=== PATIENT | male | born 1940 | race Caucasian/White ===

== ENCOUNTER 2016-10-03 19:38 | Emergency (ER) | payer MEDICAID, MEDICARE, OTHER ==
[~2016-10-03] VITALS: Ht 167.6 cm; Wt 90.7 kg
[2016-10-03] MEDS ORDERED: fentaNYL INJECTION 100 MCG/2 ML AMP IVP ONE ×2 (19:45→20:15)
--- NOTE | 2016-10-03 19:49 | ED GU-Male ---
General Stated Complaint: CONFUSION Source: patient Exam Limitations: no limitations History of Present Illness Time seen by provider: 19:47 Initial Comments To ER per [facility]. His next door neighbor called after he knocked on her back door naked and she noticed blood on his coat which he was wearing as pants and noticed him to be confused. EMS did not notice any bleeding. Patient was moaning and writhing in bed on his way here. Reportedly, neighbor saw him 2-3 days ago and he wasn't like this. According to the neighbor, the patient does have a daughter but he is estranged from her. Daughter has not visited in 6 months after "he kicked her off of his property". No other family that the neighbor is aware of. Timing/Duration: just prior to arrival Severity/Quality: moderate Location: suprapubic Radiation: none Prior Genitourinary Problems: none Associated Symptoms: denies symptoms Allergies and Home Medications Allergies Coded Allergies: No Known Drug Allergies (Unverified , 10/03/16) Constitutional: see HPI Other Patient is far too confused to contribute to the history of present illness. Physical Exam Vital Signs Vital Sign - Last 12Hours 10/03/16 19:54 Temp 94.4 Pulse 82 Resp 12 B/P 174/78 Pulse Ox 95 O2 Delivery Room Air Capillary Refill : General Appearance: WD/WN moderate distress other (moaning) HEENT: PERRL/EOMI normal ENT inspection Neck: non-tender full range of motion Cardiovascular: regular rate, rhythm no murmur Respiratory: no accessory muscle use decreased breath sounds Gastrointestinal: normal bowel sounds soft tenderness other (reducible umbilical hernia) Extremities: normal range of motion non-tender other Neurologic/Psychiatric: disoriented x 3 other (alert, moans "0h, 0h" but will not otherwise answer questions.) Skin: normal color warm/dry Progress/Results/Core Measures Results/Orders Lab Results Laboratory Tests Test 10/03/16 19:40 10/03/16 19:48 10/03/16 19:54 10/03/16 20:33 Range/Units Alanine Aminotransferase (ALT/SGPT) 16 0-55 U/L Albumin 4.2 3.2-4.5 G/DL Alkaline Phosphatase 57 40-136 U/L Anion Gap 27 H 5-14 MMOL/L Aspartate Amino Transf (AST/SGOT) 11 5-34 U/L BUN/Creatinine Ratio 7 Basophils # (Auto) 0.0 0.0-0.1 10^3/uL Basophils (%) (Auto) 0 0-10 % Blood Urea Nitrogen 148 *H 7-18 MG/DL Calcium Level 9.0 8.5-10.1 MG/DL Carbon Dioxide Level 9 *L 21-32 MMOL/L Chloride Level 105 98-107 MMOL/L Creatinine 20.00 H 0.60-1.30 MG/DL Eosinophils # (Auto) 0.0 0.0-0.3 10^3/uL Eosinophils (%) (Auto) 0 0-10 % Estimat Glomerular Filtration Rate 2 Glucose Level 128 H 70-105 MG/DL Hematocrit 38 L 40-54 % Hemoglobin 13.3 13.3-17.7 G/DL INR Comment 1.4 0.8-1.4 Lymphocytes # (Auto) 1.1 1.0-4.0 X 10^3 Lymphocytes (%) (Auto) 9 L 12-44 % Mean Corpuscular Hemoglobin 29 25-34 PG Mean Corpuscular Hemoglobin Concent 35 32-36 G/DL Mean Corpuscular Volume 81 80-99 FL Mean Platelet Volume 10.1 7.4-10.4 FL Monocytes # (Auto) 0.8 0.0-1.0 X 10^3 Monocytes (%) (Auto) 6 0-12 % Neutrophils # (Auto) 10.8 H 1.8-7.8 X 10^3 Neutrophils (%) (Auto) 85 H 42-75 % Platelet Count 280 130-400 10^3/uL Potassium Level 6.4 H 3.6-5.0 MMOL/L Prothrombin Time 16.4 H 12.2-14.7 SEC Red Blood Count 4.67 4.35-5.85 10^6/uL Red Cell Distribution Width 13.5 10.0-14.5 % Sodium Level 141 135-145 MMOL/L Total Bilirubin 0.6 0.1-1.0 MG/DL Total Creatine Kinase 149 30-200 U/L Total Protein 7.1 6.4-8.2 G/DL White Blood Count 12.8 H 4.3-11.0 10^3/uL Urine Bacteria NEGATIVE /HPF Urine Bilirubin NEGATIVE NEGATIVE Urine Casts NONE /LPF Urine Clarity SLIGHTLY CLOUDY Urine Color YELLOW Urine Crystals NONE /LPF Urine Culture Indicated NO Urine Glucose (UA) NEGATIVE NEGATIVE Urine Ketones 1+ H NEGATIVE Urine Leukocyte Esterase NEGATIVE NEGATIVE Urine Mucus SMALL H /LPF Urine Nitrite NEGATIVE NEGATIVE Urine Protein NEGATIVE NEGATIVE Urine RBC 25-50 H /HPF Urine RBC (Auto) 4+ H NEGATIVE Urine Specific [place] 1.010 L 1.016-1.022 Urine Urobilinogen NORMAL NORMAL MG/DL Urine WBC 0-2 /HPF Urine pH 5 5-9 Glucometer 146 H 70-110 MG/DL Lactic Acid Level 0.9 0.5-2.0 MMOL/L Test 10/03/16 20:36 10/03/16 21:20 Range/Units [place] Test YES-POS Arterial Blood Base Excess -13.3 L -2.5-2.5 MMOL/L Arterial Blood HCO3 12 *L 23-27 MMOL/L Arterial Blood Oxygen Saturation 95 94-100 % Arterial Blood Partial Pressure CO2 27 L 35-45 MMHG Arterial Blood Partial Pressure O2 76 L 79-93 MMHG Arterial Blood Total CO2 13.2 L 21.0-31.0 MMOL/L Arterial Blood pH 7.27 *L 7.37-7.43 Blood Gas Inspired Oxygen RA Blood Gas Patient Temperature 97.4 Blood Gas Puncture Site LT RAD Blood Gas Ventilator Setting NO Anion Gap 24 H 5-14 MMOL/L BUN/Creatinine Ratio 9 Blood Urea Nitrogen 133 *H 7-18 MG/DL Calcium Level 9.0 8.5-10.1 MG/DL Carbon Dioxide Level 13 L 21-32 MMOL/L Chloride Level 106 98-107 MMOL/L Creatinine 15.64 H 0.60-1.30 MG/DL Estimat Glomerular Filtration Rate 3 Glucose Level 188 H 70-105 MG/DL Potassium Level 5.3 H 3.6-5.0 MMOL/L Sodium Level 143 135-145 MMOL/L My Orders Orders-SILKE OSORIO APRN Cbc With Automated Diff (10/03/16 19:39) Comprehensive Metabolic Panel (10/03/16 19:39) Ua Culture If Indicated (10/03/16 19:39) Saline Lock/Iv-Start (10/03/16 19:39) Chest 1 View, Ap/Pa Only (10/03/16 19:39) Ct Head/Cervical Spine Wo (10/03/16 19:39) Protime With Inr (10/03/16 19:39) Blood Culture (10/03/16 19:40) Lactic Acid Analyzer (10/03/16 19:40) Creatine Kinase (10/03/16 19:40) Fentanyl Injection (Sublimaze Injection (10/03/16 19:45) Accucheck Stat ONCE (10/03/16 19:53) Ondansetron Injection (Zofran Injectio (10/03/16 20:15) Ondansetron Injection (Zofran Injectio (10/03/16 20:15) Ondansetron Injection (Zofran Injectio (10/03/16 20:06) Fentanyl Injection (Sublimaze Injection (10/03/16 20:15) Ct Abdomen/Pelvis Wo (10/03/16 20:13) Ekg Tracing (10/03/16 20:16) Insulin (Regular) Human (Humulin R (Per (10/03/16 20:30) D50w (Emergency) Syringe (Dextrose 50% 5 (10/03/16 20:30) Furosemide Injection (Lasix Injection) (10/03/16 20:30) Sodium Bicarbonate 8.4% Syr (Sodium Bica (10/03/16 20:30) Saline Lock/Iv-Start (10/03/16 20:26) Arterial Blood Gas (10/03/16 20:37) Gomez Cath Insertion (10/03/16 21:08) Basic Metabolic Panel (10/03/16 21:20) Medications Given in ED Current Medications Medications Dose Ordered Sig/Naomi Route Start Time Stop Time Status Last Admin Dose Admin Dextrose 50 ml ONCE ONCE IV 10/03/16 20:30 10/03/16 20:31 DC 10/03/16 21:05 50 ML Fentanyl Citrate 50 mcg ONCE ONCE IVP 10/03/16 19:45 10/03/16 19:46 DC 10/03/16 19:48 50 MCG Furosemide 40 mg ONCE ONCE IVP 10/03/16 20:30 10/03/16 20:31 DC 10/03/16 21:05 40 MG Insulin Human Regular 10 unit ONCE ONCE IV 10/03/16 20:30 10/03/16 20:31 DC 10/03/16 21:05 10 UNIT Ondansetron HCl 4 mg ONCE ONCE IVP 10/03/16 20:15 10/03/16 20:16 DC 10/03/16 20:10 4 MG Ondansetron HCl 4 mg ONCE ONCE IVP 10/03/16 20:15 10/03/16 20:16 DC 10/03/16 21:05 4 MG Sodium Bicarbonate 50 meq ONCE ONCE IV 10/03/16 20:30 10/03/16 20:31 DC 10/03/16 21:05 50 MEQ Vital Signs/I&O Vital Sign - Last 12Hours 10/03/16 19:54 Temp 94.4 Pulse 82 Resp 12 B/P 174/78 Pulse Ox 95 O2 Delivery Room Air ECG Initial ECG Rhythm: Normal Sinus Initial ECG Impression: Normal Comment No ectopy, normal rate Diagnostic Imaging Diagonstic Imaging: Xray, CT Comments [facility] [id number] PT STATUS: REG ER : 1940 PHYSICIAN: SILKE OSORIO APRN ADMIT DATE: 10/03/16/ER Draft Date of Exam:10/03/16 CHEST 1 VIEW, AP/PA ONLY INDICATION: Altered mental status. COMPARISON: None available. TECHNIQUE: Single frontal radiograph of the chest dated October 03, 2016. FINDINGS: The cardiac silhouette is within normal limits. No significant pulmonary vascular congestion. Small left basilar pleural-parenchymal opacity is present. Minimal diffuse prominence of the pulmonary interstitium. No focal pulmonary opacity within the right lung. No significant right pleural effusion. No pneumothorax. No acute osseous abnormality. IMPRESSION: Small left basilar pleural-parenchymal opacity, felt to relate to a combination of pleural fluid with adjacent minimal infiltrate and/or atelectasis. Mild diffuse prominence of the pulmonary interstitium. Findings could relate to minimal background interstitial lung disease versus minimal interstitial edema. There is, however, no significant pulmonary vascular congestion. Dictated on workstation # [id number] Dict: 10/03/162022 Trans: 10/03/162026 [id number] Interpreted by: FLACO HASTINGS MD Electronically signed by: NAME: [facility] [id number] PT STATUS: REG ER : 1940 PHYSICIAN: SILKE OSORIO APRN ADMIT DATE: 10/03/16/ER Draft Date of Exam:10/03/16 CT ABDOMEN/PELVIS WO PROCEDURE: CT abdomen and pelvis without contrast. TECHNIQUE: Multiple contiguous axial images were obtained through the abdomen and pelvis without the use of intravenous contrast. INDICATION: Altered mental status COMPARISON: None available FINDINGS: Small left basilar pleural effusion. Otherwise, the visualized lung bases are clear. 6 mm hypodensity within the dome of the right hepatic lobe, which is too small to completely characterize. Additional 5 mm hypodensity within the lateral aspect of the right hepatic lobe. Otherwise, the unenhanced liver is unremarkable. Calcified splenic granuloma. Otherwise, the spleen is unremarkable. The adrenal glands are unremarkable. The pancreas is unremarkable. The gallbladder is grossly unremarkable. Gomez catheter is noted within a decompressed urinary bladder. The prostate gland is significantly enlarged. Moderate bilateral hydroureteronephrosis. Mild bilateral perinephric inflammatory stranding. Layering densities are noted within the right renal pelvis measuring up to 1.1 cm. Given density, this is not consistent with a densely calcified calculus. Additional slight hyperdensity is seen within the inferior pole of the right kidney measuring 0.6 cm. Moderate vascular calcifications within the abdominal aorta and its branch vessels. Small fat-containing umbilical hernia. Small fat-containing left inguinal hernia. Mild colonic diverticulosis without definite CT evidence of diverticulitis. Small to moderate amount of low-density fluid identified within the abdomen and pelvis, including about the liver and spleen. No free air. No adenopathy. Scattered osseous degenerative changes without acute osseous abnormality. IMPRESSION: Moderate bilateral hydroureteronephrosis. Although this could simply relate to chronic urinary bladder outlet obstruction given the severe enlargement of the prostate gland. On this examination, the urinary bladder is decompressed secondary to a Gomez catheter. Therefore, additional etiologies of obstruction should be considered but not definitely identified. Layering densities within the right renal pelvis and right renal collecting system. These may relate to mildly calcified renal calculi. Blood clots or debris would be an additional consideration. Recommend renal ultrasound for further evaluation. Additionally, a CT of the abdomen and pelvis with and without contrast including delayed imaging would help to further evaluate the bilateral ureters for intraluminal filling defect. Correlation with urinary analysis is also recommended given perinephric inflammatory stranding to ensure that there is no underlying pyelonephritis. Small to moderate amount of free fluid throughout the abdomen and pelvis. Mild colonic diverticulosis without definite CT evidence of diverticulitis. Small left pleural effusion. Tiny hypodensities within the liver which are incompletely evaluated without the use of intravenous contrast. Small fat-containing umbilical hernia and left inguinal hernia. Additional findings as above. Dictated on workstation # [id number] Dict: 10/03/162041 Trans: 10/03/162056 [facility] [id number] Interpreted by: FLACO HASTINGS MD Electronically signed by: NAME: CARLIE SUBRAMANIAN [facility] REC#: [id number] PT STATUS: REG ER : 1940 PHYSICIAN: SILKE OSORIO APRN ADMIT DATE: 10/03/16/ER Draft Date of Exam:10/03/16 CT HEAD/CERVICAL SPINE WO PROCEDURE: CT head and CT cervical spine without contrast. TECHNIQUE: Multiple contiguous axial images were obtained through the brain and cervical spine without the use of intravenous contrast. Sagittal and coronal reformations through the cervical spine were then performed. INDICATION: Altered mental status. COMPARISON: None available. FINDINGS: Mild atrophy. No intracranial hemorrhage. Periventricular and subcortical white matter hypodensities are present, most consistent with mild chronic small vessel white matter ischemic disease. A 5 mm hypodensity within the left basal ganglia is present. No definite CT evidence of a large territorial infarction. The orbits are unremarkable. The paranasal sinuses are clear. The calvarium and extra calvarial soft tissues are unremarkable. Alignment of the cervical spine is well-maintained. Alignment of the atlantooccipital joint is well-maintained. Besides endplate degenerative changes, vertebral body heights are well-maintained. Moderate to severe disc space height loss at C5/C6 and C6/C7. Otherwise, disc space heights are well-maintained. No acute fracture or dislocation. No destructive osseous process. Scattered facet joint degenerative changes and uncovertebral joint hypertrophy are present. No high-grade osseous central canal stenosis. Scattered vascular calcifications. Otherwise, the paraspinal soft tissues are unremarkable. IMPRESSION: A 5 mm hypodensity within the left basal ganglia. This is felt to relate to a tiny age-indeterminate lacunar infarction versus less likely dilated perivascular space. Mild atrophy with associated mild chronic small vessel white matter ischemic disease. No acute osseous abnormality within the cervical spine with mild to moderate multilevel degenerative changes. If there is clinical concern for underlying recent infarction, further evaluation with MRI of the brain could be obtained. Dictated on workstation # [id number] Dict: 10/03/162048 Trans: 10/03/162099 [facility] [id number] Interpreted by: FLACO HASTINGS MD Electronically signed by: Critical Care Note Critical Care Start Time: 21:00 Stop Time: 22:00 Total Time (minutes) 60 Departure Communication Progress Notes 1950-a Gomez catheter was inserted upon arrival to ER which showed blood clots in it and a total of 1 L was drained and he quit moaning. 2018-I called [facility]'s office to ask about family members. They state that the neighbor who called in the report stated that he does have a daughter but they don't know where she lives or how to contact her. 2132-Neighbor present. States his daughter hasnt been around n 6+ months and they do not talk. She does not know where the daughter lives or how to contact her. No spouse or other children. As of this time, he's had 2900ml of Urine output per gomez cather. 2138-Dr. Dumont has excepted the patient in transfer to ICU. Patient's chest x- ray, CT abdomen and pelvis without and CT head/cervical spine without have been sent via cloud to [place] [id number] paged for transport to [place] ICU room 264. HR 72 sinus, O2 95% on room air, RR 18, BP 145/74. No longer moaning/writhing. Impression Impression: Primary Impression: Acute renal failure Qualified Code: N17.9 - Acute kidney failure, unspecified Additional Impressions: Uremic encephalopathy Metabolic acidosis Extrarenal azotemia Disposition: ADMITTED INPATIENT Condition: Critical Decision to Admit Reason: Admit from ER (General) Decision to Admit/Date: Oct 03, 2016 Time/Decision to Admit Time: 20:20 Departure-Patient Inst. Referrals: UNKNOWN (PCP/Family) Primary Care Physician SILKE OSORIO APRN Oct 03, 2016 19:49
[2016-10-03 19:50] LABS: BASOPHILS % (AUTO) 0 % (0-10); EOSINOPHILS % (AUTO) 0 % (0-10); LYMPHOCYTES # (AUTO) 1.1 X 10^3 (1.0-4.0); LYMPHOCYTES % (AUTO) 9 % (12-44); MEAN CORPUSCULAR HEMOGLOBIN 29 PG (25-34); MEAN CORPUSCULAR HGB CONC 35 G/DL (32-36); MEAN CORPUSCULAR VOLUME 81 FL (80-99); MEAN PLATELET VOLUME 10.1 FL (7.4-10.4); MONOCYTES # (AUTO) 0.8 X 10^3 (0.0-1.0); MONOCYTES % (AUTO) 6 % (0-12); NEUTROPHILS # (AUTO) 10.8 X 10^3 (1.8-7.8); NEUTROPHILS % (AUTO) 85 % (42-75); PLATELET COUNT 280 10^3/uL (130-400); RED BLOOD COUNT 4.67 10^6/uL (4.35-5.85); RED CELL DISTRIBUTION WIDTH 13.5 % (10.0-14.5); WHITE BLOOD COUNT 12.8 10^3/uL (4.3-11.0)
[2016-10-03 19:55] LABS: BILIRUBIN,URINE NEGATIVE (NEGATIVE); KETONES,URINE 1+ (NEGATIVE); LEUKOCYTE ESTERASE ,URINE NEGATIVE (NEGATIVE); NITRITE,URINE NEGATIVE (NEGATIVE); PH,URINE 5 (5-9); PROTEIN,URINE NEGATIVE (NEGATIVE); UROBILINOGEN,URINE NORMAL (NORMAL)
[2016-10-03 20:04] LABS: INR 1.4 (0.8-1.4); PROTHROMBIN TIME PATIENT 16.4 SEC (12.2-14.7)
[2016-10-03] MEDS ORDERED: ONDANSETRON 4 MG/2 ML (SDV) Z0FRAN ONE (20:06)
[2016-10-03 20:10] LABS: WBC,URINE 0-2 /HPF
[2016-10-03] MEDS ORDERED: ONDANSETRON 4 MG/2 ML (SDV) Z0FRAN IVP ONE ×2 (20:15)
[2016-10-03 20:16] LABS: ALBUMIN 4.2 G/DL (3.2-4.5); BILIRUBIN,TOTAL 0.6 MG/DL (0.1-1.0); POTASSIUM 6.4 MMOL/L (3.6-5.0); TOTAL PROTEIN 7.1 G/DL (6.4-8.2)
--- NOTE | 2016-10-03 20:27 | Diagnostic Imaging Report ---
INDICATION: Altered mental status. COMPARISON: None available. TECHNIQUE: Single frontal radiograph of the chest dated October 03, 2016. FINDINGS: The cardiac silhouette is within normal limits. No significant pulmonary vascular congestion. Small left basilar pleural-parenchymal opacity is present. Minimal diffuse prominence of the pulmonary interstitium. No focal pulmonary opacity within the right lung. No significant right pleural effusion. No pneumothorax. No acute osseous abnormality. IMPRESSION: Small left basilar pleural-parenchymal opacity, felt to relate to a combination of pleural fluid with adjacent minimal infiltrate and/or atelectasis. Mild diffuse prominence of the pulmonary interstitium. Findings could relate to minimal background interstitial lung disease versus minimal interstitial edema. There is, however, no significant pulmonary vascular congestion. Dictated by: Dictated on workstation # [id number]
[2016-10-03] MEDS ORDERED: DEXTROSE 50% 50 ML (IMS) SYR IV ONE (20:30)
[2016-10-03] MEDS ORDERED: inSUlin (REGULAR) HUMAN 1 UNIT/0.01 ML (CHARGE PER UNIT) IV ONE (20:30)
[2016-10-03] MEDS ORDERED: FUROSEMIDE 40 MG/4 ML INJ (LASIX) IVP ONE (20:30)
[2016-10-03] MEDS ORDERED: SODIUM BICARB 8.4% 50 MEQ/50 ML (ABBOTT) SYR IV ONE (20:30)
[2016-10-03 20:43] LABS: ABG BASE EXCESS -13.3 MMOL/L (-2.5-2.5); ABG OXYGEN SATURATION 95 % (94-100); ABG PCO2 27 MMHG (35-45); ABG PO2 76 MMHG (79-93); ABG TCO2 13.2 MMOL/L (21.0-31.0)
[2016-10-03 20:44] LABS: ABG PH 7.27 (7.37-7.43)
[2016-10-03 20:45] LABS: ABG HCO3 12 MMOL/L (23-27); ALLENS TEST YES-POS; PATIENT TEMP 97.4
--- NOTE | 2016-10-03 20:58 | Diagnostic Imaging Report ---
PROCEDURE: CT abdomen and pelvis without contrast. TECHNIQUE: Multiple contiguous axial images were obtained through the abdomen and pelvis without the use of intravenous contrast. INDICATION: Altered mental status COMPARISON: None available FINDINGS: Small left basilar pleural effusion. Otherwise, the visualized lung bases are clear. 6 mm hypodensity within the dome of the right hepatic lobe, which is too small to completely characterize. Additional 5 mm hypodensity within the lateral aspect of the right hepatic lobe. Otherwise, the unenhanced liver is unremarkable. Calcified splenic granuloma. Otherwise, the spleen is unremarkable. The adrenal glands are unremarkable. The pancreas is unremarkable. The gallbladder is grossly unremarkable. Cates catheter is noted within a decompressed urinary bladder. The prostate gland is significantly enlarged. Moderate bilateral hydroureteronephrosis. Mild bilateral perinephric inflammatory stranding. Layering densities are noted within the right renal pelvis measuring up to 1.1 cm. Given density, this is not consistent with a densely calcified calculus. Additional slight hyperdensity is seen within the inferior pole of the right kidney measuring 0.6 cm. Moderate vascular calcifications within the abdominal aorta and its branch vessels. Small fat-containing umbilical hernia. Small fat-containing left inguinal hernia. Mild colonic diverticulosis without definite CT evidence of diverticulitis. Small to moderate amount of low-density fluid identified within the abdomen and pelvis, including about the liver and spleen. No free air. No adenopathy. Scattered osseous degenerative changes without acute osseous abnormality. IMPRESSION: Moderate bilateral hydroureteronephrosis. Although this could simply relate to chronic urinary bladder outlet obstruction given the severe enlargement of the prostate gland. On this examination, the urinary bladder is decompressed secondary to a Cates catheter. Therefore, additional etiologies of obstruction should be considered but not definitely identified. Layering densities within the right renal pelvis and right renal collecting system. These may relate to mildly calcified renal calculi. Blood clots, neoplasm, or debris would be an additional consideration. Recommend renal ultrasound for further evaluation. Additionally, a CT of the abdomen and pelvis with and without contrast including delayed imaging would help to further evaluate the bilateral ureters for intraluminal filling defect. Correlation with urinary analysis is also recommended given perinephric inflammatory stranding to ensure that there is no underlying pyelonephritis. Small to moderate amount of free fluid throughout the abdomen and pelvis. Mild colonic diverticulosis without definite CT evidence of diverticulitis. Small left pleural effusion. Tiny hypodensities within the liver which are incompletely evaluated without the use of intravenous contrast. Small fat-containing umbilical hernia and left inguinal hernia. Additional findings as above. Dictated by: Dictated on workstation # [id number]
--- NOTE | 2016-10-03 21:00 | Diagnostic Imaging Report ---
PROCEDURE: CT head and CT cervical spine without contrast. TECHNIQUE: Multiple contiguous axial images were obtained through the brain and cervical spine without the use of intravenous contrast. Sagittal and coronal reformations through the cervical spine were then performed. INDICATION: Altered mental status. COMPARISON: None available. FINDINGS: Mild atrophy. No intracranial hemorrhage. Periventricular and subcortical white matter hypodensities are present, most consistent with mild chronic small vessel white matter ischemic disease. A 5 mm hypodensity within the left basal ganglia is present. No definite CT evidence of a large territorial infarction. The orbits are unremarkable. The paranasal sinuses are clear. The calvarium and extra calvarial soft tissues are unremarkable. Alignment of the cervical spine is well-maintained. Alignment of the atlantooccipital joint is well-maintained. Besides endplate degenerative changes, vertebral body heights are well-maintained. Moderate to severe disc space height loss at C5/C6 and C6/C7. Otherwise, disc space heights are well-maintained. No acute fracture or dislocation. No destructive osseous process. Scattered facet joint degenerative changes and uncovertebral joint hypertrophy are present. No high-grade osseous central canal stenosis. Scattered vascular calcifications. Otherwise, the paraspinal soft tissues are unremarkable. IMPRESSION: A 5 mm hypodensity within the left basal ganglia. This is felt to relate to a tiny age-indeterminate lacunar infarction versus less likely dilated perivascular space. Mild atrophy with associated mild chronic small vessel white matter ischemic disease. No acute osseous abnormality within the cervical spine with mild to moderate multilevel degenerative changes. If there is clinical concern for underlying recent infarction, further evaluation with MRI of the brain could be obtained. Dictated by: Dictated on workstation # [id number]
[2016-10-03 21:58] LABS: CREATININE SERUM 15.64 MG/DL (0.60-1.30); POTASSIUM 5.3 MMOL/L (3.6-5.0)
[2016-10-03 22:37] VITALS: BP 133/81
[2016-10-03] MEDS ORDERED: fentaNYL INJECTION 100 MCG/2 ML AMP ONE (22:42)
[2016-11-13] MEDS ORDERED: DONE5TAB8 PO (13:36)
== END 2016-10-03 22:37 | disposition short-term general hospital (02) ==
LOC: EDBD → ER 19:39
DX: N17.9 Acute kidney failure, unspecified (principal); G93.49 Other encephalopathy; E87.2 Acidosis; R79.89 Other specified abnormal findings of blood chemistry; K42.9 Umbilical hernia without obstruction or gangrene; K40.90 Unilateral inguinal hernia, without obstruction or gangrene, not specified as recurrent; K57.30 Diverticulosis of large intestine without perforation or abscess without bleeding; J90 Pleural effusion, not elsewhere classified
CPT/HCPCS: 36415; 51702; 70450; 71010; 72125; 74176; 80048; 80053; 81000; 82550; 82805; 82962; 83605; 85025; 85610; 87040; 93005; 96374; 96375; 96376

== ENCOUNTER 2016-11-09 16:23 | Observation (INO) | payer MEDICARE, OTHER ==
[~2016-11-09] VITALS: Ht 167.6 cm; Wt 71.2 kg
--- OUTSIDE RECORDS SUMMARY | 2016-11-09 16:28 | XMS REPORT | Continuity of Care Document ---
Author Author [facility] Organization [facility] Address Unknown Phone Unavailable Care Team Providers Care [employer] S[employer] Name Role Phone UNKNOWN PCP Unavailable Insurance Providers Payer Name Policy Number Subscriber Name Relationship Self Pay Yayo Subramanian 18 Self / Same As Patient Chief Complaint and Reason for Visit Chief Complaint Altered Mental Status Reason for Visit Uremic encephalopathy Acute renal failure [id number] Metabolic acidosis Problems Active Problems Medical Problem Onset Date Status Acute renal failure Unknown Acute Extrarenal azotemia Unknown Acute Metabolic acidosis Unknown Acute Uremic encephalopathy Unknown Acute Medications No medication information available. Social History Social History Problem Response Recorded Date/Time Recent Foreign Travel No 10/03/2016 7:54pm Recent Infectious Disease Exposure No 10/03/2016 7:54pm Hospitalization with Isolation Denies 10/03/2016 7:54pm Recent Hopitalizations No 10/03/2016 7:54pm Hospitalization with Isolation Denies 10/03/2016 7:54pm Hospital Discharge Instructions No hospital discharge instructions. Plan of Care Discharge Date 10/03/16 10:40pm Disposition 09 ADMITTED INPATIENT Condition at Discharge Critical Prescriptions See Medication Section Referrals UNKNOWN - Primary Care Physician Functional Status Query Response Date Recorded Patient Orientation Mumbles October 03, 2016 7:54pm Comprehension Ability Understands Concepts October 03, 2016 7:54pm Allergies, Adverse Reactions, Alerts No known allergies. Immunizations No immunization records. Vital Signs Acute Vital Signs Vital Response Date/Time Temperature (Fahrenheit) 94.4 degrees F (97.6 - 99.5) 10/03/2016 7:54pm Temperature (Calculated Celsius) 34.42821 degrees C (36.4 - 37.5) 10/03/2016 7:54pm Temperature Source Tympanic 10/03/2016 7:54pm Pulse Rate (adult) 74 bpm (60 - 90) 10/03/2016 10:37pm Respiratory Rate 14 bpm (12 - 24) 10/03/2016 10:37pm O2 Sat by Pulse Oximetry 100 % (88 - 100) 10/03/2016 10:37pm Blood Pressure 133/81 mm Hg 10/03/2016 10:37pm Blood Pressure Mean 110 mm Hg 10/03/2016 7:54pm Pain Numeric Pain Scale 7 10/03/2016 7:54pm Height (Feet) 5 feet 10/03/2016 7:54pm Height (Inches) 6 inches 10/03/2016 7:54pm Height (Calculated Centimeters) 167.284003 cm 10/03/2016 7:54pm Weight (Pounds) 200 pounds 10/03/2016 7:54pm Weight (Calculated Kilograms) 90.404403 kilograms 10/03/2016 7:54pm Capillary Refill Capillary Refill Less Than 3 Seconds 10/03/2016 7:54pm Height 5 ft 6 in Weight 200 lb Body Mass Index 32.3 kg/m^2 Results Laboratory Results Test Name Result Units Flags Reference Collection Date/Time Result Date/ Time Comments White Blood Count 12.8 10^3/uL H 4.3-11.0 10/03/2016 7:40pm 10/03/2016 7: 59pm Red Blood Count 4.67 10^6/uL 4.35-5.85 10/03/2016 7:40pm 10/03/2016 7: 59pm Hemoglobin 13.3 G/DL 13.3-17.7 10/03/2016 7:40pm 10/03/2016 7:59pm Hematocrit 38 % L 40-54 10/03/2016 7:40pm 10/03/2016 7:59pm Mean Corpuscular Volume 81 FL 80-99 10/03/2016 7:40pm 10/03/2016 7: 59pm Mean Corpuscular Hemoglobin 29 PG 25-34 10/03/2016 7:40pm 10/03/2016 7: 59pm Mean Corpuscular Hemoglobin Concent 35 G/DL 32-36 10/03/2016 7:40pm 7:59pm Red Cell Distribution Width 13.5 % 10.0-14.5 10/03/2016 7:40pm 2016 7:59pm Platelet Count 280 10^3/uL 130-400 10/03/2016 7:40pm 10/03/2016 7:59pm Mean Platelet Volume 10.1 FL 7.4-10.4 10/03/2016 7:40pm 10/03/2016 7: 59pm Neutrophils (%) (Auto) 85 % H 42-75 10/03/2016 7:40pm 10/03/2016 7:59pm Lymphocytes (%) (Auto) 9 % L 12-44 10/03/2016 7:40pm 10/03/2016 7:59pm Monocytes (%) (Auto) 6 % 0-12 10/03/2016 7:40pm 10/03/2016 7:59pm Eosinophils (%) (Auto) 0 % 0-10 10/03/2016 7:40pm 10/03/2016 7:59pm Basophils (%) (Auto) 0 % 0-10 10/03/2016 7:40pm 10/03/2016 7:59pm Neutrophils # (Auto) 10.8 X 10^3 H 1.8-7.8 10/03/2016 7:40pm 10/03/2016 7 :59pm Lymphocytes # (Auto) 1.1 X 10^3 1.0-4.0 10/03/2016 7:40pm 10/03/2016 7: 59pm Monocytes # (Auto) 0.8 X 10^3 0.0-1.0 10/03/2016 7:40pm 10/03/2016 7: 59pm Eosinophils # (Auto) 0.0 10^3/uL 0.0-0.3 10/03/2016 7:40pm 10/03/2016 7 :59pm Basophils # (Auto) 0.0 10^3/uL 0.0-0.1 10/03/2016 7:40pm 10/03/2016 7: 59pm Prothrombin Time 16.4 SEC H 12.2-14.7 10/03/2016 7:40pm 10/03/2016 8: 07pm INR Comment 1.4 0.8-1.4 10/03/2016 7:40pm 10/03/2016 8:07pm INTERPRETIVE DATA SUGGESTED THERAPEUTIC RANGE FOR INR'S: VENOUS THROMBOSIS, PULMONARY EMBOLISM, OR PREVENTION OF SYSTEMIC EMBOLISM (EG. IN ATRIAL FIBRILLATION): 2.0 - 3.0 MECHANICAL PROSTHETIC HEART VALVES: 2.5 - 3.5* *NOTE: INR'S UP TO 4.5 MAY BE NECESSARY IN SELECTED GROUPS OF HIGH RISK PATIENTS. [employer] CONSENSUS CONFERENCE ON ANTITHROMBOTIC THERAPY (2000). Urine Color YELLOW 10/03/2016 7:48pm 10/03/2016 8:11pm Urine Clarity SLIGHTLY CLOUDY 10/03/2016 7:48pm 10/03/2016 8:11pm Urine pH 5 5-9 10/03/2016 7:48pm 10/03/2016 8:11pm Urine Specific [place] 1.010 * 1.016-1.022 10/03/2016 7:48pm 2016 8:11pm Urine Protein NEGATIVE NEGATIVE 10/03/2016 7:48pm 10/03/2016 8:11pm Urine Glucose (UA) NEGATIVE NEGATIVE 10/03/2016 7:48pm 10/03/2016 8: 11pm Urine RBC (Auto) 4+ * NEGATIVE 10/03/2016 7:48pm 10/03/2016 8:11pm Urine Ketones 1+ * NEGATIVE 10/03/2016 7:48pm 10/03/2016 8:11pm Urine Nitrite NEGATIVE NEGATIVE 10/03/2016 7:48pm 10/03/2016 8:11pm Urine Bilirubin NEGATIVE NEGATIVE 10/03/2016 7:48pm 10/03/2016 8: 11pm Urine Urobilinogen NORMAL MG/DL NORMAL 10/03/2016 7:48pm 10/03/2016 8: 11pm Urine Leukocyte Esterase NEGATIVE NEGATIVE 10/03/2016 7:48pm 2016 8:11pm Urine RBC 25-50 /HPF * 10/03/2016 7:48pm 10/03/2016 8:11pm Urine WBC 0-2 /HPF 10/03/2016 7:48pm 10/03/2016 8:11pm Urine Bacteria NEGATIVE /HPF 10/03/2016 7:48pm 10/03/2016 8:11pm Urine Crystals NONE /LPF 10/03/2016 7:48pm 10/03/2016 8:11pm Urine Casts NONE /LPF 10/03/2016 7:48pm 10/03/2016 8:11pm Urine Mucus SMALL /LPF * 10/03/2016 7:48pm 10/03/2016 8:11pm Urine Culture Indicated NO 10/03/2016 7:48pm 10/03/2016 8:11pm Sodium Level 143 MMOL/L 135-145 10/03/2016 9:20pm 10/03/2016 10:01pm Potassium Level 5.3 MMOL/L H 3.6-5.0 10/03/2016 9:20pm 10/03/2016 10: 01pm Chloride Level 106 MMOL/L 98-107 10/03/2016 9:20pm 10/03/2016 10:01pm Carbon Dioxide Level 13 MMOL/L L 21-32 10/03/2016 9:20pm 10/03/2016 10: 01pm Anion Gap 24 MMOL/L H 5-14 10/03/2016 9:20pm 10/03/2016 10:01pm Blood Urea Nitrogen 133 MG/DL CH 7-18 10/03/2016 9:20pm 10/03/2016 10: 01pm RESULTS CALLED TO PB AT 2200. RESULTS READ BACK: YES. Creatinine 15.64 MG/DL H 0.60-1.30 10/03/2016 9:20pm 10/03/2016 10:01pm BUN/Creatinine Ratio 9 10/03/2016 9:20pm 10/03/2016 10:01pm Estimat Glomerular Filtration Rate 3 10/03/2016 9:20pm 10/03/2016 10:01pm GFR INTERPRETIVE DATA UNITS FOR ESTIMATED GFR (eGFR): mL/min/1.73 M2 REFERENCE RANGE FOR ESTIMATED GFR (eGFR) eGFR NORMAL eGFR >60 MODERATELY DECREASED eGFR 30-59 SEVERLY DECREASED eGFR 15-29 KIDNEY FAILURE <15 (OR DIALYSIS) Glucose Level 188 MG/DL H 70-105 10/03/2016 9:20pm 10/03/2016 10:01pm Glucometer 146 MG/DL H 70-110 10/03/2016 7:54pm 10/03/2016 8:01pm Calcium Level 9.0 MG/DL 8.5-10.1 10/03/2016 9:20pm 10/03/2016 10:01pm Total Bilirubin 0.6 MG/DL 0.1-1.0 10/03/2016 7:40pm 10/03/2016 8:18pm Alkaline Phosphatase 57 U/L 40-136 10/03/2016 7:40pm 10/03/2016 8:18pm Aspartate Amino Transf (AST/SGOT) 11 U/L 5-34 10/03/2016 7:40pm 2016 8:18pm Alanine Aminotransferase (ALT/SGPT) 16 U/L 0-55 10/03/2016 7:40pm 10/03 8:18pm Total Creatine Kinase 149 U/L 30-200 10/03/2016 7:40pm 10/03/2016 8: 18pm Total Protein 7.1 G/DL 6.4-8.2 10/03/2016 7:40pm 10/03/2016 8:18pm Albumin 4.2 G/DL 3.2-4.5 10/03/2016 7:40pm 10/03/2016 8:18pm Lactic Acid Level 0.9 MMOL/L 0.5-2.0 10/03/2016 8:33pm 10/03/2016 9: 19pm Lactic acid levels can appear lower than actual values in patients receiving NAC (N-Acetyl Cysteine). Arterial Blood pH 7.27 CL 7.37-7.43 10/03/2016 8:36pm 10/03/2016 8: 45pm RESULTS CALLED TO JOSUÉ AT 2043. RESULTS READ BACK: YES. Arterial Blood Partial Pressure CO2 27 MMHG L 35-45 10/03/2016 8:36pm 8:45pm Arterial Blood Partial Pressure O2 76 MMHG L 79-93 10/03/2016 8:36pm 8:45pm Arterial Blood HCO3 12 MMOL/L CL 23-27 10/03/2016 8:36pm 10/03/2016 8: 45pm RESULTS CALLED TO LUCERO AT 2044. RESULTS READ BACK: YES. Arterial Blood Total CO2 13.2 MMOL/L L 21.0-31.0 10/03/2016 8:36pm 2016 8:45pm Arterial Blood Base Excess -13.3 MMOL/L L -2.5-2.5 10/03/2016 8:36pm 8:45pm Arterial Blood Oxygen Saturation 95 % 94-100 10/03/2016 8:36pm 2016 8:45pm Blood Gas Puncture Site LT RAD 10/03/2016 8:36pm 10/03/2016 8:45pm Norman Test YES-POS 10/03/2016 8:36pm 10/03/2016 8:45pm Blood Gas Inspired Oxygen RA 10/03/2016 8:36pm 10/03/2016 8:45pm Blood Gas Ventilator Setting NO 10/03/2016 8:36pm 10/03/2016 8: 45pm Blood Gas Patient Temperature 97.4 10/03/2016 8:36pm 10/03/2016 8: 45pm Procedures Procedure Status Date Provider(s) Tracing only of electrocardiogram Active 10/03/16 SILKE OSORIO APRN Encounters Encounter Location Arrival/Admit Date Discharge/Depart Date Attending Provider Departed Emergency Room [facility] 10/03/16 7:39pm 10/03 10:40pm SILKE OSORIO APRN Recent Diagnosis
--- NOTE | 2016-11-09 17:42 | ED General ---
General Chief Complaint: Altered Mental Status Stated Complaint: CONFUSION Nursing Triage Note: PT DAUGHTER REPORTS PT IS TOO CONFUSED TO STAY WITH HER AT HER HOUSE AND THINKS HE NEEDS TO GO BACK TO LIVE AT THE ASSISTED. Nursing Sepsis Screen: No Definite Risk Source of Information: Family History of Present Illness Time Seen by Provider: 17:37 Initial Comments The patient is a 76-year-old white male brought here by ambulance. The tale is long and somewhat convoluted. It begins in September of this year when he apparently appeared at a neighbors house naked and with bleeding from the penis. He was brought here and was quite confused. His creatinine at arrival was 20 and he was sent to [facility] in [place]. He then apparently went to a rehabilitation hospital and finally was sent here to a local group home. He has no local physician. His daughter was stated in September to have been estranged from him. They have apparently reconciled. She took him home from the group home on Saturday 11/04. She reports he is gotten consistently more confused since that time. He has been agitated and has struck at her as well. She then decided today she could no longer handle him and attempted to readmit him to the group home. They informed her that that was not possible that he had left voluntarily and had no local physician to readmit him. She then had him brought here by ambulance. He is clearly very confused. Timing/Duration: 5-6 Days Allergies and Home Medications Allergies Coded Allergies: No Known Drug Allergies (Unverified , 10/03/16) Home Medications Donepezil HCl 5 Mg Tablet, 5 MG PO HS for 3 Days Prescribed by: TYRA RUBY on 11/13/16 1336 Finasteride 5 Mg Tablet, 5 MG PO DAILY, (Reported) Metoprolol Tartrate 25 Mg Tablet, 25 MG PO BID, (Reported) Tamsulosin HCl 0.4 Mg Cap.er.24h, 0.8 MG PO DAILY, (Reported) Constitutional: see HPI EENTM: no symptoms reported Respiratory: no symptoms reported Cardiovascular: no symptoms reported Gastrointestinal: no symptoms reported Genitourinary: no symptoms reported Other The patient is very confused and all answers to questions are considered in bowel and Past Ngztpxk-Nkqyzh-Dinwjg Hx Patient Social History Alcohol Use: Denies Use Recreational Drug Use: No Smoking Status: Former Smoker Type Used: Cigarettes 2nd Hand Smoke Exposure: No Recent Foreign Travel: No Contact w/Someone Who Travel: No Recent Infectious Disease Expo: No Recent Hopitalizations: No Surgeries HX Surgeries: No (UNABLE TO OBTAIN AT THIS TIME.) Cardiovascular Hx Cardiac Disorders: Yes Cardiac Disorders: Hypertension Neurological Hx Neurological Disorders: Yes Neurological Disorders: Dementia Genitourinary Hx Genitourinary Disorders: Yes (HAS URINARY CATHETER) Physical Exam Vital Signs Capillary Refill : Less Than 3 Seconds General Appearance: Other (elderly white male in no apparent distress) Eyes: Bilateral Eye PERRL HEENT: Normal ENT Inspection Neck: Full Range of Motion, Normal Inspection, Non Tender, Supple, Carotid Bruit Respiratory: Chest Non Tender, Lungs Clear, Normal Breath Sounds, No Accessory Muscle Use, No Respiratory Distress Cardiovascular: Regular Rate, Rhythm, No Edema, No Gallop, No JVD, No Murmur, Normal Peripheral Pulses Gastrointestinal: Normal Bowel Sounds, No Organomegaly, No Pulsatile Mass, Non Tender, Soft Genital/Rectal: Other (Cates plus leg bag) Back: Normal Inspection Neurologic/Psychiatric: Alert, Disoriented x3 Comments There is considerable edema of both lower legs. It is greatly larger on the right than on the left. There is erythema bilaterally consistent with venous stasis dermatitis Progress/Results/Core Measures Results/Orders My Orders Vital Signs/I&O Blood Pressure Mean: 104 Departure Impression Impression: Primary Impression: Dementia with aggressive behavior Disposition: ADMITTED INPATIENT Condition: Stable Decision to Admit Reason: Admit from ER (General) Decision to Admit/Date: Nov 09, 2016 Time/Decision to Admit Time: 17:43 Departure-Patient Inst. Referrals: NO,LOCAL PHYSICIAN (PCP/Family) Primary Care Physician Scripts Donepezil HCl (Aricept) 5 Mg Tablet 5 MG PO HS for 3 Days, TAB Prov: TYRA RUBY DO 11/13/16 DELFINO INMAN MD Nov 09, 2016 17:42
[2016-11-09 17:49] LABS: BASOPHILS % (AUTO) 0 % (0-10); EOSINOPHILS # (AUTO) 0.3 10^3/uL (0.0-0.3); EOSINOPHILS % (AUTO) 3 % (0-10); LYMPHOCYTES # (AUTO) 1.7 X 10^3 (1.0-4.0); LYMPHOCYTES % (AUTO) 16 % (12-44); MEAN CORPUSCULAR HEMOGLOBIN 28 PG (25-34); MEAN CORPUSCULAR HGB CONC 33 G/DL (32-36); MEAN CORPUSCULAR VOLUME 86 FL (80-99); MEAN PLATELET VOLUME 9.6 FL (7.4-10.4); MONOCYTES # (AUTO) 0.9 X 10^3 (0.0-1.0); MONOCYTES % (AUTO) 9 % (0-12); NEUTROPHILS # (AUTO) 7.6 X 10^3 (1.8-7.8); NEUTROPHILS % (AUTO) 73 % (42-75); PLATELET COUNT 302 10^3/uL (130-400); RED BLOOD COUNT 3.27 10^6/uL (4.35-5.85); RED CELL DISTRIBUTION WIDTH 13.2 % (10.0-14.5); WHITE BLOOD COUNT 10.5 10^3/uL (4.3-11.0)
[2016-11-09 18:00] LABS: BILIRUBIN,URINE NEGATIVE (NEGATIVE); KETONES,URINE NEGATIVE (NEGATIVE); LEUKOCYTE ESTERASE ,URINE 3+ (NEGATIVE); NITRITE,URINE NEGATIVE (NEGATIVE); PH,URINE 8 (5-9); PROTEIN,URINE 2+ (NEGATIVE); UROBILINOGEN,URINE NORMAL (NORMAL)
[2016-11-09 18:07] LABS: ALANINE AMINOTRANSFERASE 12 U/L (0-55); ALBUMIN 3.3 G/DL (3.2-4.5); ANION GAP 8 MMOL/L (5-14); ASPARTATE AMINO TRANSFERASE 20 U/L (5-34); BILIRUBIN,TOTAL 0.3 MG/DL (0.1-1.0); BLOOD UREA NITROGEN 10 MG/DL (7-18); BUN/CREATININE RATIO 9; CALCIUM 8.3 MG/DL (8.5-10.1); CARBON DIOXIDE 27 MMOL/L (21-32); CHLORIDE 108 MMOL/L (98-107); CREATININE SERUM 1.16 MG/DL (0.60-1.30); GFR ESTIMATED > 60; GLUCOSE 109 MG/DL (70-105); POTASSIUM 3.3 MMOL/L (3.6-5.0); SODIUM 143 MMOL/L (135-145); TOTAL PROTEIN 6.3 G/DL (6.4-8.2)
[2016-11-09 18:09] LABS: WBC,URINE 25-50 /HPF
[2016-11-09] MEDS: NS IV 1000 ML 1,000 ML IV SCH (23:33)
[2016-11-10 00:44] VITALS: BP 138/65
[2016-11-10 05:19] LABS: ANION GAP 7 MMOL/L (5-14); BLOOD UREA NITROGEN 8 MG/DL (7-18); BUN/CREATININE RATIO 8; CALCIUM 7.7 MG/DL (8.5-10.1); CARBON DIOXIDE 25 MMOL/L (21-32); CHLORIDE 111 MMOL/L (98-107); CREATININE SERUM 1.05 MG/DL (0.60-1.30); GFR ESTIMATED > 60; GLUCOSE 100 MG/DL (70-105); POTASSIUM 3.4 MMOL/L (3.6-5.0); SODIUM 143 MMOL/L (135-145)
[2016-11-10 05:30] VITALS: BP 116/59
[2016-11-10 08:00] VITALS: BP 103/58
[2016-11-10] MEDS: NS IV 1000 ML 1,000 ML IV SCH ×2 (09:41→18:55)
--- NOTE | 2016-11-10 11:34 | Short Stay Summary-Hospitalist ---
HPI History of Present Illness: HPI/Chief Complaint CC: Unable to care for self HPI: This is a 76yoWM pt that was just released from [place] when skilled days were exhausted. After he originally presented to ER with ARF with Creat of 20, BUN of 148 and K+ 6.4. Pt had catheter placed and was sent to [place] for higher level of care. He returned last night due to family unable to care for pt any longer. Labs normal. SW Review: SW searching for [facility] placement. Patient Interview: Pt states that he feels alright today. Pt has no pain at this time. Pt states that he is unsure if he uses a catheter. Pt is able to ambulate. Physical exam stable. Pt has no requests at this time. [facility] will require senior unit evaluation for admission and [facility] useful so we'll proceed on with other senior behavioral unit facilities Plan: Case management switch to observation Scribed by Antonio Hernandez under the direct supervision of Dr. Bernardo. Source: RN/MD Exam Limitations: clinical condition (dementia) Date Seen 11/10/16 Attending Physician Micaela Bernardo DO PCP No,Local Physician Referring Physician Date of Admission Nov 09, 2016 at 18:21 Home Medications & Allergies Home Medications Reviewed patient Home Medication Reconciliation Form Allergies Coded Allergies: No Known Drug Allergies (Unverified , 10/03/16) Past Odpptqq-Kitzpz-Pnvysg Hx Patient Social History Marrital Status: single Employed/Student: retired Alcohol Use: Denies Use Recreational Drug Use: No Smoking Status: Former Smoker Type Used: Cigarettes 2nd Hand Smoke Exposure: No Physical Abuse Screen: No Sexual Abuse: No Recent Foreign Travel: No Contact w/other who traveled: No Recent Hopitalizations: No Recent Infectious Disease Expo: No Surgeries HX Surgeries: No (UNABLE TO OBTAIN AT THIS TIME.) Cardiovascular Hx Cardiovascular Disorders: Yes Cardiac Disorders: Hypertension Neurological Hx Neurological Disorders: Yes Neurological Disorders: Dementia Genitourinary Hx Genitourinary Disorders: Yes (HAS URINARY CATHETER) Genitourinary Disorders: Renal Failure Review of Systems ROS-Unable to Obtain: dementia Constitutional: see HPI weakness Physical Exam Physical Exam Vital Signs Vital Sign - Last 12Hours 11/09/16 11/09/16 16:26 19:15 Temp 99.6 Pulse 82 Resp 18 B/P 168/73 Pulse Ox 97 O2 Delivery Room Air Capillary Refill : Less Than 3 Seconds General Appearance: No Apparent Distress WD/WN Chronically ill Eyes: Bilateral Eye Normal Inspection, Bilateral Eye PERRL HEENT: PERRL/EOMI Normal ENT Inspection Pharynx Normal Neck: Full Range of Motion Normal Inspection Non Tender Supple Carotid Bruit Respiratory: Chest Non Tender Lungs Clear Normal Breath Sounds No Accessory Muscle Use No Respiratory Distress Cardiovascular: Regular Rate, Rhythm No Edema No Gallop No JVD No Murmur Normal Peripheral Pulses Gastrointestinal: Normal Bowel Sounds No Organomegaly No Pulsatile Mass Non Tender Soft Back: Normal Inspection No CVA Tenderness No Vertebral Tenderness Extremity: Normal Capillary Refill Normal Inspection Normal Range of Motion Non Tender No Calf Tenderness No Pedal Edema Neurologic/Psychiatric: Alert Oriented x3 No Motor/Sensory Deficits Depressed Affect Disoriented x3 Skin: Normal Color Warm/Dry Lymphatic: No Adenopathy Results Results/Procedures Lab Laboratory Tests 11/09/16 17:33 11/10/16 04:30 Short Stay Diagnosis Discharge Diagnosis-Short Stay Admission Diagnosis Assessment: Severe debility with aggressive behavior in the past due to dementia and delirium and worsening cognitive decline Recent ARF with Creat of 20, now normal Dementia Social issues Abnormal UA and urine culture with colonized staph Final Discharge Diagnosis Assessment: Severe debility with aggressive behavior in the past due to dementia and delirium and worsening cognitive decline Recent ARF with Creat of 20, now normal Dementia Social issues Abnormal UA and urine culture with colonized staph Conclusion Plan Senior behavioral unit eval Continue supportive care MICAELA BERNARDO DO Nov 10, 2016 11:34
[2016-11-10 12:00] VITALS: BP 132/80
[2016-11-10 16:00] VITALS: BP 117/56
[2016-11-10] MEDS ORDERED: TAMS0.4C2 PO (16:22)
[2016-11-10] MEDS ORDERED: METO-333 PO (16:22)
[2016-11-10] MEDS ORDERED: FINA5TAB PO (16:22)
[2016-11-10] MEDS ORDERED: PATIENT MAY USE OWN MEDS, ALL MC SCH (16:45)
[2016-11-10] MEDS ORDERED: ALFUZOSIN HCL 10 MG TAB (UROXATRAL) PO SCH (18:00)
[2016-11-10] MEDS ORDERED: CATHETER FLUSH 10 ML SYR IV PRN (18:45)
[2016-11-10 20:59] VITALS: BP 126/60
[2016-11-10] MEDS ORDERED: meTOprolol TARTRATE 25 MG (LOPRESSOR) TABLET PO SCH (21:00)
[2016-11-10] MEDS: meTOprolol TARTRATE 25 MG (LOPRESSOR) TABLET PO SCH (21:19)
[2016-11-11] VITALS: BP 137/60
[2016-11-11] MEDS: NS IV 1000 ML 1,000 ML IV SCH (06:36)
[2016-11-11 08:45] VITALS: BP 163/69
[2016-11-11] MEDS: FINASTERIDE (PROSCAR) 5 MG TAB PO SCH (08:59)
[2016-11-11] MEDS ORDERED: TAMSULOSIN 0.4 MG (FLOMAX) CAP PO SCH (09:00)
[2016-11-11] MEDS ORDERED: FINASTERIDE (PROSCAR) 5 MG TAB PO SCH (09:00)
[2016-11-11] MEDS: meTOprolol TARTRATE 25 MG (LOPRESSOR) TABLET PO SCH ×2 (09:00→21:00)
[2016-11-11] MEDS: TAMSULOSIN 0.4 MG (FLOMAX) CAP PO SCH (09:00)
[2016-11-11] MEDS ORDERED: NON-FORMULARY MEDICATION 1 EA EA (Finasteride (Proscar) 5 MG) PO SCH (09:00)
--- NOTE | 2016-11-11 10:37 | Progress Note-Hospitalist ---
Progress Note HPI/CC on Admission CC: Unable to care for self HPI: This is a 76yoWM pt that was just released from [place] when skilled days were exhausted. After he originally presented to ER with ARF with Creat of 20, BUN of 148 and K+ 6.4. Pt had catheter placed and was sent to [place] for higher level of care. He returned last night due to family unable to care for pt any longer. Labs normal. SW Review: SW searching for skilled nursing placement. Patient Interview: Pt states that he feels alright today. Pt has no pain at this time. Pt states that he is unsure if he uses a catheter. Pt is able to ambulate. Physical exam stable. Pt has no requests at this time. [facility] will require senior unit evaluation for admission and [facility] useful so we'll proceed on with other senior behavioral unit facilities Plan: Case management switch to observation Scribed by Antonio Hernandez under the direct supervision of Dr. Bernardo. Progress Notes/Assess & Plan Date Seen 11/11/16 Admission Dx/Process Assessment: Severe debility with aggressive behavior in the past due to dementia and delirium and worsening cognitive decline Recent ARF with Creat of 20, now normal Dementia Social issues Abnormal UA and urine culture with colonized staph Diagonsis/Assessment & Plan Patient doing well and was up in a chair for breakfast Patient very confused and becomes anxious at times because he doesn't know what to say No fever Will start Aricept at night to see if we can help his memory while we were waiting on placement Ordered SCDs Denies any pain Cates catheter in place No fever, vital signs stable, pleasant Regular rate and rhythm, clear to auscultation bilaterally No edema Assessment: Severe debility with severe dementia with aggression with family in need of placement versus senior behavioral unit Chronic 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
[2016-11-11] MEDS: CATHETER FLUSH 10 ML SYR IV SCH ×2 (15:03→22:00)
[2016-11-11 16:00] VITALS: BP 158/78
[2016-11-11] MEDS ORDERED: HALOPERIDOL 5 MG/ML (HALDOL) AMP IM ONE (18:30)
[2016-11-11] MEDS ORDERED: LORazepam INJ 2 MG/ML (ATIVAN) VIAL ONE ×2 (19:10→19:13)
[2016-11-11] MEDS ORDERED: LORazepam INJ 2 MG/ML (ATIVAN) VIAL IVP PRN (19:15)
[2016-11-11] MEDS: LORazepam INJ 2 MG/ML (ATIVAN) VIAL IVP PRN (20:15)
[2016-11-11] MEDS: DONEPEZIL 5 MG (ARICEPT) TAB PO SCH (21:00)
[2016-11-12] VITALS: BP 148/69
[2016-11-12] MEDS: LORazepam INJ 2 MG/ML (ATIVAN) VIAL IVP PRN ×2 (00:23→19:40)
[2016-11-12 08:54] VITALS: BP 153/72
[2016-11-12] MEDS: FINASTERIDE (PROSCAR) 5 MG TAB PO SCH (10:55)
[2016-11-12] MEDS: meTOprolol TARTRATE 25 MG (LOPRESSOR) TABLET PO SCH ×2 (10:55→23:53)
[2016-11-12] MEDS: TAMSULOSIN 0.4 MG (FLOMAX) CAP PO SCH (10:56)
[2016-11-12] MEDS: CATHETER FLUSH 10 ML SYR IV SCH ×3 (10:58→23:54)
[2016-11-12] MEDS ORDERED: HALOPERIDOL 5 MG/ML (HALDOL) AMP IM PRN (11:15)
--- NOTE | 2016-11-12 12:55 | Progress Note-Hospitalist ---
Progress Note HPI/CC on Admission CC: Unable to care for self HPI: This is a 76yoWM pt that was just released from [place] when skilled days were exhausted. After he originally presented to ER with ARF with Creat of 20, BUN of 148 and K+ 6.4. Pt had catheter placed and was sent to [place] for higher level of care. He returned last night due to family unable to care for pt any longer. Labs normal. SW Review: SW searching for prison placement. Patient Interview: Pt states that he feels alright today. Pt has no pain at this time. Pt states that he is unsure if he uses a catheter. Pt is able to ambulate. Physical exam stable. Pt has no requests at this time. [facility] and [facility] useful so we'll proceed on with other senior behavioral unit facilities Plan: Case management switch to observation Scribed by Antonio Hernandez under the direct supervision of Dr. Bernardo. Progress Notes/Assess & Plan Date Seen 11/12/16 Admission Dx/Process Assessment: Severe debility with aggressive behavior in the past due to dementia and delirium and worsening cognitive decline Recent ARF with Creat of 20, now normal Dementia Social issues Abnormal UA and urine culture with colonized staph Diagonsis/Assessment & Plan Patient required Haldol and Ativan due to the severity of his aggression and pulling lines and fall risk and demanding to leave Patient very confused and can no longer make his own decisions VRE noted on urine culture colonized Cates catheter in place No fever, vital signs stable, pleasant, poor recall, confused Regular rate and rhythm, clear to auscultation bilaterally No edema Assessment: Severe debility with severe dementia with aggression with family in need of placement versus senior behavioral unit Chronic Cates catheter due to post obstruction Status post severe renal failure with creatinine of 20 now normal VRE colonization Plan: Senior behavioral unit eval Continue supportive care Aricept Haldol and Ativan to the severity of his aggression TYRA BERNARDO DO Nov 12, 2016 12:55
[2016-11-12 16:00] VITALS: BP 149/67
[2016-11-12] MEDS: DONEPEZIL 5 MG (ARICEPT) TAB PO SCH (23:53)
[2016-11-12 23:56] VITALS: BP 147/75
[2016-11-13] MEDS: CATHETER FLUSH 10 ML SYR IV SCH ×2 (05:59→13:32)
[2016-11-13 08:00] VITALS: BP 145/76
--- NOTE | 2016-11-13 09:14 | Progress Note-Hospitalist ---
Progress Note HPI/CC on Admission CC: Unable to care for self HPI: This is a 76yoWM pt that was just released from [place] when skilled days were exhausted. After he originally presented to ER with ARF with Creat of 20, BUN of 148 and K+ 6.4. Pt had catheter placed and was sent to [place] for higher level of care. He returned last night due to family unable to care for pt any longer. Labs normal. SW Review: SW searching for halfway placement. Patient Interview: Pt states that he feels alright today. Pt has no pain at this time. Pt states that he is unsure if he uses a catheter. Pt is able to ambulate. Physical exam stable. Pt has no requests at this time. senior living will require senior unit evaluation for admission and C useful so we'll proceed on with other senior behavioral unit facilities Plan: Case management switch to observation Scribed by Antonio Hernandez under the direct supervision of Dr. Bernardo. Progress Notes/Assess & Plan Date Seen 11/13/16 Admission Dx/Process Assessment: Severe debility with aggressive behavior in the past due to dementia and delirium and worsening cognitive decline Recent ARF with Creat of 20, now normal Dementia Social issues Abnormal UA and urine culture with colonized staph Diagonsis/Assessment & Plan Patient required Haldol and Ativan due to the severity of his aggression and pulling lines and fall risk and demanding to leave but stable now Patient very confused and can no longer make his own decisions VRE noted on urine culture colonized Cates catheter in place No fever, vital signs stable, pleasant, poor recall, confused Regular rate and rhythm, clear to auscultation bilaterally No edema Assessment: Severe debility with severe dementia with aggression with family in need of placement versus senior behavioral unit Chronic Cates catheter due to post obstruction Status post severe renal failure with creatinine of 20 now normal VRE colonization Plan: Senior behavioral unit eval Continue supportive care Aricept Haldol and Ativan to the severity of his aggression TYRA BERNARDO DO Nov 13, 2016 09:14
[2016-11-13] MEDS: TAMSULOSIN 0.4 MG (FLOMAX) CAP PO SCH (09:21)
[2016-11-13] MEDS: FINASTERIDE (PROSCAR) 5 MG TAB PO SCH (09:21)
[2016-11-13] MEDS: meTOprolol TARTRATE 25 MG (LOPRESSOR) TABLET PO SCH (09:21)
[2016-11-13] MEDS ORDERED: DONE5TAB8 PO (13:36)
[2016-11-13] MEDS ORDERED: FLU TRIvalent (5 YOA+) 2016-17 (AFLURIA) 0.5 ML IM ONE (13:45)
[2016-12-28] MEDS ORDERED: BO30SU PR (11:54)
[2016-12-28] MEDS ORDERED: HYDR-3820 PO (11:54)
== END 2016-11-13 15:35 ==
LOC: EDBD → EDUNIT# 16:23 → ER 16:24 → 4TH 18:21 → INTOOBSV 18:21 → 4TH 19:34
PROVIDERS: ADMIT Internal Medicine; ATTEND Internal Medicine
DX: F03.91 Unspecified dementia, unspecified severity, with behavioral disturbance (principal); I12.9 Hypertensive chronic kidney disease with stage 1 through stage 4 chronic kidney disease, or unspecified chronic kidney disease; N18.9 Chronic kidney disease, unspecified; Z87.891 Personal history of nicotine dependence
CPT/HCPCS: 36415; 80048; 80053; 81000; 83605; 85025; 87040; 87077; 87088; 87186; G0378

== ENCOUNTER 2016-12-22 11:15 | Outpatient (CLI) | payer MEDICARE ==
[~2016-12-22] VITALS: Ht 165.1 cm; Wt 69.9 kg
[~2016-12-22 11:15] MED LIST: DONE5TAB8 PO; FINA5TAB PO; METO-333 PO; TAMS0.4C2 PO
[2016-12-22 11:26] VITALS: BP 120/62
[2016-12-22 11:55] LABS: BASOPHILS # (AUTO) 0.1 10^3/uL (0.0-0.1); BASOPHILS % (AUTO) 1 % (0-10); EOSINOPHILS # (AUTO) 0.2 10^3/uL (0.0-0.3); EOSINOPHILS % (AUTO) 3 % (0-10); LYMPHOCYTES # (AUTO) 1.2 X 10^3 (1.0-4.0); LYMPHOCYTES % (AUTO) 19 % (12-44); MEAN CORPUSCULAR HEMOGLOBIN 28 PG (25-34); MEAN CORPUSCULAR HGB CONC 31 G/DL (32-36); MEAN CORPUSCULAR VOLUME 90 FL (80-99); MEAN PLATELET VOLUME 9.8 FL (7.4-10.4); MONOCYTES # (AUTO) 0.7 X 10^3 (0.0-1.0); MONOCYTES % (AUTO) 11 % (0-12); NEUTROPHILS # (AUTO) 4.3 X 10^3 (1.8-7.8); NEUTROPHILS % (AUTO) 67 % (42-75); PLATELET COUNT 239 10^3/uL (130-400); RED BLOOD COUNT 3.47 10^6/uL (4.35-5.85); RED CELL DISTRIBUTION WIDTH 14.9 % (10.0-14.5); WHITE BLOOD COUNT 6.4 10^3/uL (4.3-11.0)
[2016-12-22 12:19] LABS: CALCIUM 8.8 MG/DL (8.5-10.1); CREATININE SERUM 1.64 MG/DL (0.60-1.30); POTASSIUM 4.5 MMOL/L (3.6-5.0)
--- NOTE | 2016-12-22 12:22 | Diagnostic Imaging Report ---
INDICATION: Preop for prostate surgery. PA and lateral chest obtained at 12:13 p.m. and compared to 10/03/16. FINDINGS: Heart is top limits normal in size. Mediastinal silhouette is unremarkable. There are mild chronic appearing increased interstitial markings. There is improved aeration of both lung bases compared to the prior study with no focal infiltrate at this time. There is no pneumothorax or pleural fluid. IMPRESSION: Mild chronic changes with no acute process in the chest. Dictated by: Dictated on workstation # [id number]
[2016-12-22] MEDS ORDERED: MELA1TAB10 PO (13:21)
[2016-12-22] MEDS ORDERED: CHOL500049 PO (13:21)
[2016-12-22] MEDS ORDERED: MICO142C TP (13:21)
[2016-12-22] MEDS ORDERED: PHEN-827 PO (13:21)
[2016-12-22] MEDS ORDERED: TRAM-42 PO (13:21)
[2016-12-22] MEDS ORDERED: DRON2.5C10 PO (13:21)
[2016-12-22] MEDS ORDERED: ACET325T49 PO ×2 (13:21)
[2016-12-22] MEDS ORDERED: CITA10TA7 PO (13:21)
[2016-12-22] MEDS ORDERED: MEMA5TAB16 PO (13:21)
[2016-12-22] MEDS ORDERED: ERGO2000 PO (13:21)
[2016-12-22] MEDS ORDERED: FERR-65 PO (13:21)
[2016-12-22] MEDS ORDERED: DONE5TAB30 PO (13:21)
[2016-12-22] MEDS ORDERED: POLY119P5 PO (13:21)
[2016-12-22] MEDS ORDERED: TRAZ-28 PO (13:21)
== END 2016-12-22 12:05 | disposition home or self-care (01) ==
LOC: EDBD 11:15 → PREOP 11:15
PROVIDERS: ATTEND Urology
DX: Z01.810 Encounter for preprocedural cardiovascular examination (principal); Z01.818 Encounter for other preprocedural examination; Z11.2 Encounter for screening for other bacterial diseases; N40.0 Benign prostatic hyperplasia without lower urinary tract symptoms
CPT/HCPCS: 36415; 71020; 80048; 85025; 86850; 86900; 86901; 87081

== ENCOUNTER 2016-12-26 06:51 | Inpatient (IN) | payer MEDICARE ==
[~2016-12-26] VITALS: Ht 165.1 cm; Wt 69.9 kg
[~2016-12-26 06:51] MED LIST changes: +ACET325T49 PO; +CHOL500049 PO; +CITA10TA7 PO; +DONE5TAB30 PO; +DRON2.5C10 PO; +ERGO2000 PO; +FERR-65 PO; +MELA1TAB10 PO; +MEMA5TAB16 PO; +MICO142C TP; +PHEN-827 PO; +POLY119P5 PO; +TRAM-42 PO; +TRAZ-28 PO
[2016-12-26] MEDS ORDERED: NS (IVPB) 50 ML ONE (06:54)
[2016-12-26] MEDS ORDERED: cefTRIAXone 1 GM (ROCEPHIN) VIAL ONE (06:54)
--- NOTE | 2016-12-26 07:08 | Progress Note-Pre Operative ---
Pre-Operative Progress Note H&P Reviewed The H&P was reviewed, patient examined and no changes noted. Date H&P Reviewed: Dec 26, 2016 Time H&P Reviewed: 07:08 Pre-Operative Diagnosis: URINE RETENTION 2RY TO BPH AND NEUROGENIC BLADDER MELISSA JENKINS MD Dec 26, 2016 7:08 am
--- NOTE | 2016-12-26 07:09 | Progress Note-Post Operative ---
Post-Operative Progess Note Surgeon (s)/Hand Tapper (s) Surgeon MELISSA JENKINS MD Hand Tapper: N/A Pre-Operative Diagnosis URINE RETENTION 2RY TO BPH AND NEUROGENIC BLADDER Post-Operative Diagnosis SAME Post-Op Procedure Note Date of Procedure: Dec 26, 2016 Name of Procedure Performed: TURP Description of the Procedure: PER DICTATION Findings of the Procedure SAME Anesthesia Type SPINAL Estimated blood loss (mL): 150CC Specimen(s) collected/removed PROSTATE CHIPS MELISSA JENKINS MD Dec 26, 2016 7:09 am
[2016-12-26] MEDS ORDERED: cefTRIAXone 1 GM/NS 50 ML IVPB IV ONE ×2 (07:15)
[2016-12-26] MEDS ORDERED: CATHETER FLUSH 10 ML SYR IV PRN (07:15)
[2016-12-26] MEDS ORDERED: MILK OF MAGNESIA 400 MG/5 ML 30 ML UDC PO PRN (07:15)
[2016-12-26] MEDS: LACTATED RINGERS 1,000 ML IV PRN ×2 (07:15→08:30)
[2016-12-26] MEDS ORDERED: BELLADONNA ALK/OPIUM (B & O) 30 MG SUPP PR PRN (07:15)
[2016-12-26 07:21] VITALS: BP 154/76
[2016-12-26] MEDS ORDERED: proPOfol 200 MG/20 ML (DIPRIVAN) VIAL IV ONE (10:05)
[2016-12-26] MEDS ORDERED: fentaNYL INJECTION 100 MCG/2 ML AMP IVP PRN (11:00)
[2016-12-26] MEDS: LACTATED RINGERS 1,000 ML IV SCH ×4 (11:24→20:57)
[2016-12-26 12:00] VITALS: BP 147/74
[2016-12-26] MEDS: DOCUSATE SODIUM 100 MG (COLACE) CAP PO SCH ×2 (12:00→20:34)
[2016-12-26] MEDS: HYDROcodone/APAP 10 MG/325 MG (LORTAB) TAB PO PRN (16:15)
[2016-12-26 16:19] VITALS: BP 129/58
--- NOTE | 2016-12-26 19:24 | OPERATIVE REPORT ---
DATE OF SERVICE: 12/26/2016 PREOPERATIVE DIAGNOSIS: Urinary retention secondary to benign prostatic hyperplasia and neurogenic bladder. POSTOPERATIVE DIAGNOSIS: Urinary retention secondary to benign prostatic hyperplasia and neurogenic bladder. OPERATION PERFORMED: Transurethral resection of the prostate. SURGEON: Vernon Jenkins MD ANESTHESIA: Spinal. COMPLICATIONS: None. PROCEDURE IN DETAIL: Under satisfactory spinal anesthesia, the patient in the lithotomy position, genitalia were prepped and draped in the usual sterile fashion. Urethra was dilated with Bosque sounds to accommodate a 27-Monegasque Bernabe resectoscope. The prostate was found to be large and vascular. Resection was started first circumferentially around the bladder neck, this was opened. Median lobe was leveled. Then, resection proceeded to the roof, lateral lobe, apical, and floor tissue. Resection was very adequate and hemostasis satisfactory. Prostatic chips were evacuated and veru was intact and sphincter as well with good reflex. Resectoscope was then removed and a 22-Monegasque 3-way 30 cc Balloon catheter was inserted. The balloon was inflated to 60 cc and put on traction. Corrective continuous bladder irrigation, the return of which was clear. Estimated blood loss 150 cc, none of which was replaced. The patient tolerated the procedure well and was sent to the recovery room in a stable condition. Job ID: [id number] DocumentID: [id number] Dictated Date: 12/26/2016 10:23:54 [place]der Date: 12/26/2016 10:54:10 Dictated By: VERNON JENKINS MD [facility]
[2016-12-26 20:00] VITALS: BP 124/63
[2016-12-27 00:44] VITALS: BP 134/56
[2016-12-27] MEDS: HYDROcodone/APAP 10 MG/325 MG (LORTAB) TAB PO PRN ×3 (03:00→19:25)
[2016-12-27 04:56] VITALS: BP 129/54
[2016-12-27] MEDS: LACTATED RINGERS 1,000 ML IV SCH ×2 (05:49→13:50)
[2016-12-27 07:01] LABS: BASOPHILS % (AUTO) 1 % (0-10); EOSINOPHILS # (AUTO) 0.1 10^3/uL (0.0-0.3); EOSINOPHILS % (AUTO) 2 % (0-10); LYMPHOCYTES # (AUTO) 1.4 X 10^3 (1.0-4.0); LYMPHOCYTES % (AUTO) 19 % (12-44); MEAN CORPUSCULAR HEMOGLOBIN 28 PG (25-34); MEAN CORPUSCULAR HGB CONC 31 G/DL (32-36); MEAN CORPUSCULAR VOLUME 91 FL (80-99); MEAN PLATELET VOLUME 9.4 FL (7.4-10.4); MONOCYTES # (AUTO) 0.7 X 10^3 (0.0-1.0); MONOCYTES % (AUTO) 9 % (0-12); NEUTROPHILS # (AUTO) 5.1 X 10^3 (1.8-7.8); NEUTROPHILS % (AUTO) 70 % (42-75); PLATELET COUNT 193 10^3/uL (130-400); RED BLOOD COUNT 2.69 10^6/uL (4.35-5.85); RED CELL DISTRIBUTION WIDTH 15.3 % (10.0-14.5); WHITE BLOOD COUNT 7.4 10^3/uL (4.3-11.0)
[2016-12-27] MEDS ORDERED: LEVOFLOXACIN 500 MG/100 ML IV 100 ML IV NR (07:15)
[2016-12-27 07:28] LABS: ALBUMIN 3.1 G/DL (3.2-4.5); BILIRUBIN,TOTAL 0.3 MG/DL (0.1-1.0); CALCIUM 8.3 MG/DL (8.5-10.1); CREATININE SERUM 1.33 MG/DL (0.60-1.30); POTASSIUM 3.9 MMOL/L (3.6-5.0); TOTAL PROTEIN 5.2 G/DL (6.4-8.2)
[2016-12-27 08:00] VITALS: BP 126/54
[2016-12-27] MEDS: DOCUSATE SODIUM 100 MG (COLACE) CAP PO SCH ×2 (08:27→20:33)
[2016-12-27] MEDS ORDERED: IRON SUCROSE INJECTION 200 MG in NS (IVPB) 100 ML IV SCH (08:45)
--- NOTE | 2016-12-27 08:49 | Progress Note-Urology ---
Progress Note-Urology Progress Notes/Assess & Plan Progress/Assessment & Plan FEELING AND DOING VERY WELL. URINE CLEAR. CREAT 1.33, H&H DOWN, DR RUBY WILL START ON IV IRON. PLAN DC [facility] TODAY AND IV TO [facility] Final Diagnosis URINE RETENTION WITH BPH AND NEUROGENIC BLADDER MELISSA JENKINS MD Dec 27, 2016 8:49 am
--- NOTE | 2016-12-27 10:50 | Anesthesia-Regional Post-Op ---
Regional Patient Condition Mental Status: Alert, Oriented x3 Circulation: Same as Pre-Op Headache: Absent Sensation: Full Recovery Motor Block: Absent Post Op Complications Complications None Follow Up Care/Instructions Patient Instructions None needed. Anesthesia/Patient Condition Patient is doing well, no complaints, stable vital signs, no apparent adverse anesthesia problems. No complications reported per nursing. JHONATAN TERESA CRNA Dec 27, 2016 10:50
--- NOTE | 2016-12-27 11:05 | Consultation-Hospitalist ---
HPI History of Present Illness: HPI/Chief Complaint CC: Medical management following TURP HPI: This is a 77 yoWM known to me from [facility]. Admitted to [facility] from [facility] due to severe dementia and renal failure due to outlet obstruction. Chart Review: Creat 1.33 and remains afebrile Hgb from 9 to 7.5. Will check iron level and give IV iron infusions Patient Interview: Pt admits to not having much pain. Physical exam stable. Lungs sound perfect. Pt was not very alert Scribed by Antonio Hernandez under the direct supervision of Dr. Ruby. Source: patient Exam Limitations: clinical condition (dementia) Date Seen 12/27/16 Attending Physician Vernon Haines MD PCP Kody Hernandez MD Referring Physician Date of Admission Home Medications & Allergies Home Medications Reviewed patient Home Medication Reconciliation Form Allergies Allergies Coded Allergies No Known Drug Allergies (Unverified10/03/16) Past Uxkgmhb-Qekchv-Vihsgj Hx Patient Social History Marrital Status: single Employed/Student: retired Alcohol Use: Denies Use Recreational Drug Use: No Smoking Status: Former Smoker Type Used: Cigarettes 2nd Hand Smoke Exposure: No Recent Foreign Travel: No Contact w/other who traveled: No Recent Hopitalizations: No Recent Infectious Disease Expo: No Seasonal Allergies Seasonal Allergies: No Surgeries HX Surgeries: No (not sure) Respiratory Hx Respiratory Disorders: No Cardiovascular Hx Cardiovascular Disorders: Yes Cardiac Disorders: Hypertension Neurological Hx Neurological Disorders: Yes Neurological Disorders: Dementia Genitourinary Hx Genitourinary Disorders: Yes (HAS URINARY CATHETER) Genitourinary Disorders: Benign Prostatic Hyperpl, Renal Failure Gastrointestinal Hx Gastrointestinal Disorders: No Musculoskeletal Hx Musculoskeletal Disorders: Yes (muscle weakness, ) Musculoskeletal Disorders: Arthritis Endocrine Hx Endocrine Disorders: No Cancer Hx Cancer: No Psychosocial Hx Psychiatric Problems: Yes Behavioral Health Disorders: Depression Integumentary HX Skin/Integumentary Disorder: No Blood Transfusions Hx Blood Disorders: No Family Medical History Family Hx: Patient reports no known family medical history. Review of Systems ROS-Unable to Obtain: unable to ascertain due to severe dementia Constitutional: see HPI Physical Exam Physical Exam Vital Signs Vital Sign - Last 12Hours 12/26/16 07:21 Temp 96.0 Pulse 59 Resp 20 B/P (MAP) 154/76 Pulse Ox 100 O2 Delivery Room Air Capillary Refill : General Appearance: No Apparent Distress, WD/WN, Chronically ill Eyes: Bilateral Eye Normal Inspection, Bilateral Eye PERRL HEENT: PERRL/EOMI, Normal ENT Inspection, Pharynx Normal Neck: Full Range of Motion, Normal Inspection, Non Tender, Supple, Carotid Bruit Respiratory: Chest Non Tender, Lungs Clear, Normal Breath Sounds, No Accessory Muscle Use, No Respiratory Distress Cardiovascular: Regular Rate, Rhythm, No Edema, No Gallop, No JVD, No Murmur, Normal Peripheral Pulses Gastrointestinal: Normal Bowel Sounds, No Organomegaly, No Pulsatile Mass, Non Tender, Soft Back: Normal Inspection, No CVA Tenderness, No Vertebral Tenderness Extremity: Normal Capillary Refill, Normal Inspection, Normal Range of Motion, Non Tender, No Calf Tenderness, No Pedal Edema Neurologic/Psychiatric: Alert, No Motor/Sensory Deficits, Normal Mood/Affect, Disoriented x3, Other (severe dementia precluding detailed) Skin: Normal Color, Warm/Dry Lymphatic: No Adenopathy Results Results/Procedures Lab Laboratory Tests 12/27/16 06:50 Assessment/Plan Admission Diagnosis Assessment: Status post uncomplicated TURP performed by urology History of profound elevation in creatinine of 20 due to outlet obstruction required Cates catheter administration Severe BPH and vascular Severe anemia due to chronic illness and chronic kidney disease in addition to slight blood loss during vascular BPH treatment Dementia severe requiring retirement Hypertension Assessment and Plan Plan: Give IV iron infusions Check labs in a.m. to monitor creatinine Maintain Cates catheter until discontinued by urology Discharged back to retirement in near future Clinical Quality Measures DVT/VTE Risk/Contraindication: Risk Factor Score Per Nursin RFS Level Per Nursing on Admit: 3=High TYRA RUBY DO Dec 27, 2016 11:05
[2016-12-27 12:00] VITALS: BP 124/70
[2016-12-27 16:45] VITALS: BP 138/67
[2016-12-27 20:20] VITALS: BP 133/63
[2016-12-28] VITALS: BP 162/72
[2016-12-28] MEDS: HYDROcodone/APAP 10 MG/325 MG (LORTAB) TAB PO PRN ×3 (03:19→13:20)
[2016-12-28 04:13] VITALS: BP 154/68
[2016-12-28 06:21] LABS: BASOPHILS % (AUTO) 1 % (0-10); EOSINOPHILS # (AUTO) 0.1 10^3/uL (0.0-0.3); EOSINOPHILS % (AUTO) 2 % (0-10); LYMPHOCYTES # (AUTO) 1.2 X 10^3 (1.0-4.0); LYMPHOCYTES % (AUTO) 20 % (12-44); MEAN CORPUSCULAR HEMOGLOBIN 28 PG (25-34); MEAN CORPUSCULAR HGB CONC 32 G/DL (32-36); MEAN CORPUSCULAR VOLUME 90 FL (80-99); MEAN PLATELET VOLUME 9.3 FL (7.4-10.4); MONOCYTES # (AUTO) 0.7 X 10^3 (0.0-1.0); MONOCYTES % (AUTO) 12 % (0-12); NEUTROPHILS # (AUTO) 3.9 X 10^3 (1.8-7.8); NEUTROPHILS % (AUTO) 66 % (42-75); PLATELET COUNT 188 10^3/uL (130-400); RED BLOOD COUNT 2.85 10^6/uL (4.35-5.85); RED CELL DISTRIBUTION WIDTH 15.1 % (10.0-14.5); WHITE BLOOD COUNT 5.9 10^3/uL (4.3-11.0)
[2016-12-28 06:41] LABS: ALBUMIN 3.3 G/DL (3.2-4.5); BILIRUBIN,TOTAL 0.3 MG/DL (0.1-1.0); CALCIUM 8.7 MG/DL (8.5-10.1); CREATININE SERUM 1.37 MG/DL (0.60-1.30); POTASSIUM 3.7 MMOL/L (3.6-5.0); TOTAL PROTEIN 5.6 G/DL (6.4-8.2)
[2016-12-28 08:00] VITALS: BP 163/71
--- NOTE | 2016-12-28 08:33 | Physician Query ---
PQ-Further Specificity Admission/Discharge Admission Date: Dec 26, 2016 at 11:11 Discharge Date: The medical record reflects the following clinical scenario: History/Risk Factors: BPH with urinary retention Severe Anemia of chronic kidney disease Severe Anemia of chronic illness Slight blood loss during vascular BPH treatment Clinical Findings: Hgb from 9 to 7.5 per your consult. Estimated blood loss 150cc per op report Treatment: IV Iron infusions given. Question: Can you give (acuity) of blood loss anemia per the clinical indicators above? Please document below. 1. Acute blood loss anemia. 2. Blood loss anemia. 3. Other, with explanation of the clinical findings. 4. Clinically undetermined, no explanation for the clinical findings. PHYSICIAN RESPONSE Can you specify per above: Other, explanation/clinical finding (acute blood loss in addition to chronic kidney disease anemia and chronic disease anemia) Please remember a lack of response to the above will prompt a phone page by [facility]/ coding staff. In responding to this query, please exercise your independent professional judgment. The purpose of this communication is to more accurately reflect the complexity of your patients condition. The fact that a question is asked does not imply that any particular answer is desired or expected. Thank you for your timely response to this clarification. Requestors name: Emily Marcelino [facility] Phone # [phone] or [phone] THIS PHYSICIAN QUERY FORM IS A PERMANENT PART OF THE MEDICAL RECORD EMILY MARCELINO Dec 28, 2016 08:33 TYRA RUBY DO Dec 28, 2016 11:38
[2016-12-28] MEDS: DOCUSATE SODIUM 100 MG (COLACE) CAP PO SCH (08:54)
--- NOTE | 2016-12-28 08:56 | Physician Query ---
PQ-Uncertain Diagnosis Admission/Discharge Admission Date: Dec 26, 2016 at 11:11 Discharge Date: The medical record reflects the following clinical scenario: History/Risk Factors: BPH with urinary retention Neurogenic bladder Clinical Findings: Urinary retention Renal failure due to outlet obstruction mentioned on consult Treatment: TURP Question: Is urinary outlet obstruction a clinically valid diagnosis for this stay? Outlet obstruction was documented in your consult with no further documentation in the medical record. Please document a response below. PHYSICIAN RESPONSE Diagnosis clinically valid: Yes, Conditon resolved Please remember a lack of response to the above will prompt a phone page by CDI/ coding staff. In responding to this query, please exercise your independent professional judgment. The purpose of this communication is to more accurately reflect the complexity of your patients condition. The fact that a question is asked does not imply that any particular answer is desired or expected. Thank you for your timely response to this clarification. Requestors name: Emily Marcelino [facility] Phone # ext [phone] or [phone] THIS PHYSICIAN QUERY FORM IS A PERMANENT PART OF THE MEDICAL RECORD EMILY MARCELINO Dec 28, 2016 08:56 TYRA RUBY DO Dec 28, 2016 11:39
--- NOTE | 2016-12-28 10:52 | Progress Note-Hospitalist ---
Progress Note HPI/CC on Admission CC: Medical management following TURP HPI: This is a 77 yoWM known to me from [facility]. Admitted to [facility] from [facility] due to severe dementia and renal failure due to outlet obstruction. Chart Review: Creat 1.33 and remains afebrile Hgb from 9 to 7.5. Will check iron level and give IV iron infusions Patient Interview: Pt admits to not having much pain. Physical exam stable. Lungs sound perfect. Pt was not very alert Scribed by Antonio Hernandez under the direct supervision of Dr. Ruby. Progress Notes/Assess & Plan Date Seen 12/28/16 Admission Dx/Process Assessment: Status post uncomplicated TURP performed by urology History of profound elevation in creatinine of 20 due to outlet obstruction required Cates catheter administration Severe BPH and vascular Severe anemia due to chronic illness and chronic kidney disease in addition to slight blood loss during vascular BPH treatment Dementia severe requiring assisted Hypertension Diagonsis/Assessment & Plan food checker: Senior [facility] will see pt at [place] Pt has not urinated but he removed his Cates Pt was given pain meds Patient Interview: Pt's daughter is here to visit him today. Pt is not very responsive. After pt was given, pt seemed to feel better Physical exam was stable Pt has not had a BM No fever, vital signs stable, pleasant, demented, daughter at bedside Regular rate and rhythm, clear to auscultation bilaterally but poor expansion No edema Laboratory Tests 12/28/16 06:05 Assessment: Status post uncomplicated TURP performed by urology History of profound elevation in creatinine of 20 due to outlet obstruction required Cates catheter administration now 1.3 but needs closely watched Severe BPH and vascular Severe anemia due to chronic illness and chronic kidney disease in addition to slight blood loss during vascular BPH treatment Dementia severe requiring assisted Hypertension Plan: Give IV iron infusions until DC today DC to [place] on skilled Bowel meds Out-pt labs tomorrow and Sunday and PCP was notified to monitor creat Scribed by Emily Rankin under the direct supervision of Dr. Ruby. TYRA RUBY DO Dec 28, 2016 10:52
--- NOTE | 2016-12-28 11:47 | Progress Note-Urology ---
Progress Note-Urology Progress Notes/Assess & Plan Progress/Assessment & Plan AFEBRILE, VSS. VOIDED ONE TIME SINCE AMAYA OUT BUT NOT MEASURED. URINE TINGED. PATH REPORT BPH NO CANCER. LABS STABLE. Final Diagnosis URINE RETENTION MELISSA JENKINS MD Dec 28, 2016 11:47
[2016-12-28] MEDS ORDERED: BO30SU PR (11:54)
[2016-12-28] MEDS ORDERED: HYDR-3820 PO (11:54)
[2016-12-28 12:00] VITALS: BP 160/72
[2016-12-28] MEDS ORDERED: LEVO500T2 PO (12:48)
== END 2016-12-28 13:35 | DRG 713 ==
LOC: EDBD → SDC 06:51 → 4TH 11:11 → SDC 11:11 → 4TH 12:11
PROVIDERS: ADMIT Urology; ATTEND Urology
PROC: 0VB08ZZ Excision of Prostate, Via Natural or Artificial Opening Endoscopic (ICD-10-PCS; principal; 2016-12-26 08:32)
DX: N40.1 Benign prostatic hyperplasia with lower urinary tract symptoms (principal); N13.8 Other obstructive and reflux uropathy; D62 Acute posthemorrhagic anemia; R33.8 Other retention of urine; N31.9 Neuromuscular dysfunction of bladder, unspecified; D50.0 Iron deficiency anemia secondary to blood loss (chronic); I12.9 Hypertensive chronic kidney disease with stage 1 through stage 4 chronic kidney disease, or unspecified chronic kidney disease; N18.9 Chronic kidney disease, unspecified; D63.1 Anemia in chronic kidney disease; D63.8 Anemia in other chronic diseases classified elsewhere; F03.90 Unspecified dementia, unspecified severity, without behavioral disturbance, psychotic disturbance, mood disturbance, and anxiety; F32.9 Major depressive disorder, single episode, unspecified; M19.91 Primary osteoarthritis, unspecified site; M62.81 Muscle weakness (generalized); Z87.891 Personal history of nicotine dependence
CPT/HCPCS: 36415; 80053; 83540; 85025; 88305; 94664